=== PATIENT | female | born 1990 | race Caucasian/White ===

== ENCOUNTER 2016-12-18 14:28 | Emergency (ER) | payer OTHER ==
[2016-12-18 14:42] VITALS: BP 95/67; PULSE 84; TEMP 98.2; BMI 29.1
--- NOTE | 2016-12-18 15:10 | PDOC ---
History of Present Illness - General Chief Complaint: Hemoptysis Stated Complaint: COUGHING BLOOD Time Seen by Provider: 12/18/16 14:51 History Source: Patient Exam Limitations: No Limitations - History of Present Illness Initial Comments: 12/18/16 15:05 26 yr female no medical history born in the [facility] immunizations are UTD with cough for 4 days sore throat. Pt states she coughed up blood tinged sputum yesterday and today. no fever or chills, denies any night sweats. Severity: reports: mild Past History - Past Medical History Allergies/Adverse Reactions: Allergies Allergy/AdvReac Type Severity Reaction Status Date / Time No Known Allergies Allergy Verified 12/18/16 14:39 Home Medications: Ambulatory Orders No Home Medications 0 dose .ROUTE UTDICT 09/18/12 Albuterol Sulfate Inhaler - [Ventolin HFA Inhaler -] 1 - 2 inh PO Q4H #1 inhaler 12/18/16 Azithromycin [Zithromax 250mg Tablets -] 250 mg PO UTDICT #6 tab 12/18/16 Other medical history: denies. - Psycho/Social/Smoking Cessation Hx Suicidal Ideation: No Smoking Status: No Smoking History: Never smoked Number of Cigarettes Smoked Daily: 0 Respiratory Specific PMHX - Complaint Specific PMHX Angina: No Bronchitis: No Pneumonia: No Pulmonary Embolus: No TB (Tuberculosis): No Review of Systems - Review of Systems Able to Perform ROS?: Yes Is the patient limited Kazakh proficient: No Constitutional: No: Symptoms Reported HEENTM: Yes: Symptoms Reported, Throat Pain Respiratory: Yes: Symptoms reported, Cough Cardiac (ROS): No: Symptoms Reported ABD/GI: No: Symptoms Reported *Physical Exam - Vital Signs Last Vital Signs Temp Pulse Resp BP Pulse Ox 98.2 F 84 17 95/67 98 12/18/16 14:40 12/18/16 14:40 12/18/16 14:40 12/18/16 14:40 12/18/16 14:40 - Physical Exam General Appearance: Yes: Nourished, Appropriately Dressed HEENT: positive: EOMI, JIGNA, Normal ENT Inspection, Pharynx Normal, Pharyngeal Erythema Neck: positive: Supple. negative: Lymphadenopathy (R), Lymphadenopathy (L) Respiratory/Chest: positive: Lungs Clear, Normal Breath Sounds Cardiovascular: positive: Regular Rhythm, Regular Rate Gastrointestinal/Abdominal: positive: Normal Bowel Sounds, Soft Musculoskeletal: positive: Normal Inspection Extremity: positive: Normal Capillary Refill, Normal Inspection, Normal Range of Motion Integumentary: positive: Normal Color, Dry, Warm Neurologic: positive: Fully Oriented, Alert, Normal Mood/Affect, Normal Response , Motor Strength 5/5 Medical Decision Making - Medical Decision Making 12/18/16 15:07 cc: cough sore throat, blood tinged sputum no SOB no chest pain will check for strep vitals stable cxr *DC/Admit/Observation/Transfer Diagnosis at time of Disposition: Bronchitis - Discharge Dispostion Disposition: HOME Condition at time of disposition: Good - Prescriptions Prescriptions: Albuterol Sulfate Inhaler - [Ventolin HFA Inhaler -] 1 - 2 inh PO Q4H #1 inhaler Azithromycin [Zithromax 250mg Tablets -] 250 mg PO UTDICT #6 tab - Referrals Referrals: Gisella Qureshi MD [Primary Care Provider] - - Patient Instructions Additional Instructions: follow with your doctor Tuesday or Tuesday for follow up take the medications as prescribed for bronchitis drink pleanty of fluids to stay hydrated take motrin as needed for any pain Return to ER if worse. - Post Discharge Activity
[2016-12-18] MEDS ORDERED: IBUPROFEN 600 MG TABLET (FP) PO ONE ×2 (16:15→16:19)
--- NOTE | 2016-12-20 16:56 | PDOC ---
Patient Follow-up (Call Back) - Post ED Follow - Up Condition at time of discharge: Good Disposition at time of original discharge: HOME Reason for Call Back: Abnwl. Microbiology (12/18/16 throat C & S positive for strep pyrogene group A pt. called instructed to take 2 tabs of 250 mg po today than will call in additional 3 days of 500 mg azithromycin, pt. to return to work on 12/22/16)
== END 2016-12-18 16:58 | disposition home or self-care (01) ==
LOC: JERFT 14:28
DX: J40 Bronchitis, not specified as acute or chronic (principal)
CPT/HCPCS: 71020-TC; 84703; 87070; 87430; 99281-25